=== PATIENT | female | born 1965 | race Caucasian/White ===

== ENCOUNTER → 2018-07-23 | Emergency (ER) | payer OTHER ==
[~2018-07-23] VITALS: Ht 157.5 cm; Wt 66.7 kg
== END | disposition home or self-care (01) ==
LOC: ER 15:38
DX: G43.909 Migraine, unspecified, not intractable, without status migrainosus (principal); N39.0 Urinary tract infection, site not specified; R10.84 Generalized abdominal pain

== ENCOUNTER 2020-08-03 15:45 | Emergency (ER) | payer OTHER ==
[~2020-08-03] VITALS: Ht 154.9 cm; Wt 83.0 kg
== END 2020-08-03 22:14 | disposition home or self-care (01) ==
LOC: ER 15:45
DX: R10.32 Left lower quadrant pain (principal); Z20.822 Contact with and (suspected) exposure to COVID-19